=== PATIENT | female | born 1950 | race Two or more races ===

== ENCOUNTER 2024-05-06 21:40 | Inpatient (IN) | payer OTHER, MEDICAID ==
[~2024-05-06] VITALS: Ht 165.1 cm; Wt 68.0 kg
[2024-05-07] VITALS (14 sets, daily range): BP systolic 110–157; BP diastolic 45–75; PULSE 56–86; RESP 16–18; TEMP 97.7–98.3; O2SAT 90–98
[2024-05-07] MEDS ORDERED: MORPHINE SULFATE INJ 2 MG/ml SYRG IV PRN
[2024-05-07] MEDS ORDERED: DOCUSATE SOD 100 MG CAP PO PRN
[2024-05-07] MEDS ORDERED: hydrALAZINE HCL 20 MG/ML VL IV PRN
[2024-05-07] MEDS ORDERED: ACETAMINOPHEN 325 MG TAB PO PRN
[2024-05-07] MEDS ORDERED: HYDROcodone-ACET 5/325MG TAB PO PRN
[2024-05-07] MEDS ORDERED: NITROGLYCERIN 0.4 MG SL TAB SL PRN
[2024-05-07] MEDS ORDERED: ALBUTEROL SULF 2.5 MG/0.5ML(0.5%) NEB SOLN NEB PRN (02:45)
[2024-05-07] MEDS ORDERED: IPRATROPIUM BROM 0.5 MG/2.5ML INH SOL NEB PRN (02:45)
[2024-05-07] MEDS ORDERED: PANT40TA57 PO (03:02)
[2024-05-07] MEDS ORDERED: SIMV20TA20 PO (03:02)
[2024-05-07] MEDS ORDERED: ENAL1TAB47 PO (03:02)
[2024-05-07] MEDS ORDERED: AMLO1TAB23 PO (03:02)
[2024-05-07] MEDS: MORPHINE SULFATE INJ 2 MG/ml SYRG IV PRN (04:32)
[2024-05-07] MEDS: ONDANSETRON HCL 4 MG/2 ML VIAL IV PRN (04:33)
[2024-05-07 06:04] LABS: Basophils # (auto) 0 10 ^3/uL (0-0.2); Basophils % (auto) 0.4 % (0.0-2.0); Eosinophils # (auto) 0.4 10 ^3/uL (0-0.8); Eosinophils % (auto) 4.2 % (0.0-7.0); Hemoglobin 11.6 g/dL (12.2-16.2); Lymphocytes # (auto) 3.1 10 ^3/uL (0.4-5.4); Lymphocytes % (auto) 28.8 % (10.0-50.0); Mean Corpuscular Hemoglobin 33.1 pg (28.0-32.0); Mean Corpuscular Hgb Conc. 34.1 g/dL (32.0-36.0); Mean Corpuscular Volume 96.9 fL (80.0-100.0); Monocytes # (auto) 0.8 10 ^3/uL (0-1.3); Monocytes % (auto) 7.7 % (0.0-12.0); Neutrophils # (auto) 6.2 10 ^3/uL (1.6-8.6); Neutrophils % (auto) 58.9 % (37.0-80.0); Nucleated Red Blood Cells % 0.1 %; Red Blood Cells 3.51 10^6/uL (4.0-5.20); Red Cell Distribution Width 14.9 % (11.8-14.3); White Blood Cell 10.6 10^3/uL (4.4-10.8)
[2024-05-07 06:08] LABS: Anion Gap 13 (5-15); Carbon Dioxide 25 mmol/L (20-30); Chloride 107 mmol/L (98-107); Potassium 3.9 mmol/L (3.5-5.1); Sodium 145 mmol/L (136-145)
[2024-05-07 06:09] LABS: Calcium 9.8 mg/dL (8.7-10.4)
[2024-05-07 06:11] LABS: Prothrombin Time 10.6 sec (9.3-11.8)
[2024-05-07 06:14] LABS: BUN/Creatinine Ratio 17.1 (10.0-20.0); Blood Urea Nitrogen 14 mg/dL (9-23); Glucose 73 mg/dL (74-106)
[2024-05-07] MEDS: ENOXAPARIN SOD 40 MG/0.4 ML SYRINGE SC SCH (09:48)
[2024-05-07] MEDS: D5W/SOD CHL 0.45% 1,000 ML IV SCH (09:49)
[2024-05-07] MEDS: ENALAPRIL MALEATE 10 MG TAB PO SCH (22:11)
[2024-05-07] MEDS: ATORVASTATIN 20 MG TAB PO SCH (22:19)
[2024-05-08] VITALS (9 sets, daily range): BP systolic 100–127; BP diastolic 51–58; PULSE 52–66; RESP 13–18; TEMP 97.3–98.4; O2SAT 86–96
[2024-05-08 06:48] LABS: Calcium 8.9 mg/dL (8.7-10.4); Chloride 104 mmol/L (98-107); Potassium 3.5 mmol/L (3.5-5.1); Sodium 138 mmol/L (136-145)
[2024-05-08 06:49] LABS: Anion Gap 7 (5-15); Basophils # (auto) 0 10 ^3/uL (0-0.2); Basophils % (auto) 0.3 % (0.0-2.0); Carbon Dioxide 27 mmol/L (20-30); Eosinophils # (auto) 0.6 10 ^3/uL (0-0.8); Hemoglobin 12.5 g/dL (12.2-16.2); Lymphocytes # (auto) 3.2 10 ^3/uL (0.4-5.4); Lymphocytes % (auto) 23.2 % (10.0-50.0); Mean Corpuscular Hemoglobin 33.1 pg (28.0-32.0); Mean Corpuscular Hgb Conc. 34.9 g/dL (32.0-36.0); Monocytes % (auto) 7.4 % (0.0-12.0); Neutrophils # (auto) 9.1 10 ^3/uL (1.6-8.6); Neutrophils % (auto) 65.1 % (37.0-80.0); Red Blood Cells 3.79 10^6/uL (4.0-5.20); Red Cell Distribution Width 14.6 % (11.8-14.3); White Blood Cell 13.9 10^3/uL (4.4-10.8)
[2024-05-08 06:54] LABS: Glucose 144 mg/dL (74-106)
[2024-05-08 06:55] LABS: BUN/Creatinine Ratio 26.3 (10.0-20.0); Blood Urea Nitrogen 20 mg/dL (9-23)
[2024-05-08] MEDS: amLODIPine BESYLATE 5 MG TAB PO SCH (09:04)
[2024-05-08] MEDS ORDERED: PATIENTS OWN MEDICATION (Simvastatin 1 TAB) PO SCH (10:00)
[2024-05-08] MEDS: TETRACAINE 1% INJ 2 ML VIAL IJ ONE (12:01)
[2024-05-08] MEDS: ceFAZolin 2 GM/D5W50ml 50 ML IV ONE (12:02)
[2024-05-08] MEDS ORDERED: fentaNYL CITRATE 100 MCG/2 ML VL ONE (12:05)
[2024-05-08] MEDS ORDERED: MORPHINE SULF PF 5 MG/10 ML VIAL ONE (12:05)
[2024-05-08] MEDS ORDERED: MIDAZOLAM HCL 2MG/2ML 2ml VIAL (1mg/ml) ONE (12:05)
[2024-05-08] MEDS: BUPIVACAINE 0.25% INJ 50ML VIAL ONE ×2 (12:13→13:18)
[2024-05-08] MEDS: ROPIVACAINE 0.5% (5MG/ML) 20ML AMPULE IJ ONE (12:13)
[2024-05-08] MEDS: LACTATED RINGER'S 1,000 ML IV SCH (13:15)
[2024-05-08] MEDS ORDERED: ONDANSETRON HCL 4 MG/2 ML VIAL IV PRN (13:15)
[2024-05-08] MEDS ORDERED: DexAMETHasone SOD PHOS 10MG/1ML VIAL INJ IV PRN (13:15)
[2024-05-08] MEDS: ONDANSETRON HCL 4 MG/2 ML VIAL IV ONE (13:15)
[2024-05-08] MEDS ORDERED: ePHEDrine SULFATE 50 MG/ML AMP IV PRN (13:15)
[2024-05-08] MEDS ORDERED: HYDROcodone-ACET 10/325MG TAB PO PRN (13:15)
[2024-05-08] MEDS ORDERED: MIDAZOLAM HCL 2MG/2ML 2ml VIAL (1mg/ml) IV PRN (13:15)
[2024-05-08] MEDS ORDERED: HYDROmorphone HCL 2 MG/ML VL/or syr IV PRN (13:15)
[2024-05-08] MEDS: EPINEPHrine HCL 1 MG/1 ML AMP ONE (13:18)
[2024-05-08] MEDS: BUPIVACAINE HCL 50 ML ONE (13:18)
[2024-05-08] MEDS: DexAMETHasone SOD PHOS 4 MG/1ML SDV INJ ONE (13:18)
[2024-05-08] MEDS: SODIUM CHLOR 0.9% PF (SALINE LOCK) 10ML VIAL/SYR IV SCH (14:00)
[2024-05-08] MEDS: ceFAZolin 2 GM/D5W50ml 50 ML IV SCH (21:00)
[2024-05-09] VITALS (22 sets, daily range): BP systolic 108–144; BP diastolic 37–78; PULSE 52–68; RESP 16–89; TEMP 97.8–97.9; O2SAT 62–99
[2024-05-09 08:16] LABS: Basophils # (auto) 0 10 ^3/uL (0-0.2); Basophils % (auto) 0.1 % (0.0-2.0); Eosinophils # (auto) 0 10 ^3/uL (0-0.8); Hematocrit 32.7 % (36.0-46.0); Hemoglobin 11.2 g/dL (12.2-16.2); Lymphocytes # (auto) 2.1 10 ^3/uL (0.4-5.4); Lymphocytes % (auto) 24.2 % (10.0-50.0); Mean Corpuscular Hemoglobin 32.7 pg (28.0-32.0); Mean Corpuscular Hgb Conc. 34.2 g/dL (32.0-36.0); Mean Corpuscular Volume 95.5 fL (80.0-100.0); Monocytes # (auto) 0.6 10 ^3/uL (0-1.3); Monocytes % (auto) 6.6 % (0.0-12.0); Neutrophils % (auto) 69.1 % (37.0-80.0); Nucleated Red Blood Cells % 0.1 %; Red Blood Cells 3.43 10^6/uL (4.0-5.20); Red Cell Distribution Width 14.4 % (11.8-14.3); White Blood Cell 8.7 10^3/uL (4.4-10.8)
[2024-05-09 08:27] LABS: Calcium 8.9 mg/dL (8.7-10.4); Chloride 106 mmol/L (98-107); Potassium 4.4 mmol/L (3.5-5.1); Sodium 138 mmol/L (136-145)
[2024-05-09 08:28] LABS: Anion Gap 4 (5-15); Carbon Dioxide 28 mmol/L (20-30)
[2024-05-09 08:33] LABS: BUN/Creatinine Ratio 32.4 (10.0-20.0); Blood Urea Nitrogen 12 mg/dL (9-23); Glucose 145 mg/dL (74-106)
[2024-05-09] MEDS: ENOXAPARIN SOD 40 MG/0.4 ML SYRINGE SC SCH (09:50)
[2024-05-09] MEDS: IBUPROFEN 800 MG TAB PO PRN (18:28)
== END 2024-05-09 17:45 | DRG 480 ==
LOC: EDSEX 23:30 → EAST 23:30 → TELE-EAST 05-09 02:36
PROVIDERS: ADMIT Nurse Practitioner Family; ATTEND Internal Medicine
PROC: 0QH634Z Insertion of Internal Fixation Device into Right Upper Femur, Percutaneous Approach (ICD-10-PCS; principal; 2024-05-08 12:14)
DX: S72.001A Fracture of unspecified part of neck of right femur, initial encounter for closed fracture (principal); J96.20 Acute and chronic respiratory failure, unspecified whether with hypoxia or hypercapnia; I10 Essential (primary) hypertension; E78.5 Hyperlipidemia, unspecified; F17.210 Nicotine dependence, cigarettes, uncomplicated; H35.30 Unspecified macular degeneration; J44.89 Other specified chronic obstructive pulmonary disease; Z99.81 Dependence on supplemental oxygen; Z82.3 Family history of stroke; W18.39XA Other fall on same level, initial encounter; Y93.89 Activity, other specified; Y92.89 Other specified places as the place of occurrence of the external cause; Y99.8 Other external cause status
CPT/HCPCS: 36415; 73502; 73700; 76000; 80048; 85025; 85610; 93306; 97110; 97163; G0378; J0171; J1100; J2250; J2405; J3490